=== PATIENT | female | born 1945 | race Caucasian/White ===

== ENCOUNTER → 2016-10-21 16:50 | Outpatient (CLI) | payer MEDICARE, MEDICAID | END | disposition home or self-care (01) | LOC: D.MAMMO 10-11 09:00 → D.US 10-11 10:00 → D.MAMMO 09:00 | DX: R92.8 Other abnormal and inconclusive findings on diagnostic imaging of breast (principal) ==

== ENCOUNTER 2017-11-14 17:49 | Inpatient (IN) | payer MEDICARE, MEDICAID ==
[~2017-11-14] VITALS: Ht 165.1 cm; Wt 72.3 kg
--- NOTE | ~2017-11-14 | EC ---
PATIENT:SNOW RAM DATE OF SERVICE: 11/14/17 SEX: F MEDICAL RECORD: [id number] DATE OF : [birth year] LOCATION:[id number] AGE OF PATIENT: 72 ADMISSION DATE: 11/15/17 REFERRING PHYSICIAN: INTERPRETING PHYSICIAN: CLAIRE DUMONT MD ECHOCARDIOGRAM REPORT ECHO CHARGES 4 ECHO COMPLETE CLINICAL DIAGNOSIS: CVA VS TIA ASSESS FOR CLOTS ECHOCARDIOGRAPHIC MEASUREMENTS (adult normal given) AC root (d.<3.7cm) 3.3 cm LV Septum d (<1.2 cm> 2.1 cm Valve Excursion 1.6 cm LV Septum (systole) 2.2 cm Left Atria (s.<4.0cm> 2.8 cm LVPW d(<1.2cm) 1.7 cm RV (d.<2.3cm) 3.3 cm LVPW (sytole) 2.0 cm LV diastole(<5.6CM) 3.1 cm MV E-F(>70mm/sec) cm LV systole 1.6 cm LVOT Diameter 1.7 cm MV exc.(>10mm) 1.5 cm Est.ejection fraction (50-75%) % Pericardial Effusion N DOPPLER: LVIT cm/sec A 135 cm/sec E 91.0 cm/sec LA cm/sec RVSP 33 mmHg LVOT 90 cm/sec AOP1/2T m/s Asc. Ao 133 cm/sec RVOT cm/sec RA cm/sec PA 145 cm/sec AV Gradient Peak 7.04 mmHg AV Mean 6.03 mmHg AV Area 1.4 cm MV Gradient Peak 7.93 mmHg MV Mean 4.15 mmHg MV Area cm COMMENTS: Rural Electrification Engineer: Randy MAHONEY Professional Architect: 1 Dr. Dumont TAPE# PACS DATE OF SERVICE: 11/15/2017 PROCEDURE: Echocardiogram. FINDINGS: 1. Left ventricular chamber size is within normal limits. Left ventricular systolic function is normal. Overall ejection fraction estimated at 55%. 2. Left atrium, right atrium, and right ventricular chamber sizes are within normal limits. 3. Valvular structures have normal structure and motion. ECHOCARDIOGRAM REPORT [id number] SNOW RAM 4. Doppler interrogation only reveals mild tricuspid regurgitation. No other valvular insufficiency or stenosis. 5. No evidence of pericardial effusion or left ventricular thrombus. 6. No cardiac source of neurologic emboli. TRANSINT:[id number] Voice Confirmation ID: [id number] DOCUMENT ID: [id number] CLAIRE DUMONT MD at 1202 CC: [id number] DICTATION DATE: 11/15/17 1220 BETTING AGENCY COUNTER CLERK: 11/15/17 1224 DIS IN 11/16/17 [place] [id number] [place] [id number]
[2017-11-14 18:47] LABS: BASOPHILS 0.5 % (0-2); EOSINOPHILS 2.1 % (0-7); HEMATOCRIT 37.7 % (36.0-48.0); HEMOGLOBIN 12.2 g/dL (12-16); IMMATURE GRANULOCYTES 0.2 % (0-5); LYMPHOCYTES 27.3 % (15-50); MCH 28.3 pg (26.0-34.0); MCHC 32.4 g/dL (31.0-37.0); MCV 87.5 fL (80.0-100.0); MEAN PLATELET VOLUME 9.4 fL (7.4-10.4); MONOCYTES 8.8 % (2-11); NEUTROPHILS 61.1 % (40-80); PLATELET COUNT 300 10x3/uL (130-400); RBC 4.31 10x6/uL (4.00-5.40); RDW 12.1 % (11.5-14.5); WBC 6.1 10x3/uL (4.8-10.8)
[2017-11-14 19:02] LABS: ALBUMIN 3.4 g/dL (3.4-5.0); ALKALINE PHOSPHATASE 90 U/L (46-116); ALT (SGPT) 23 U/L (10-68); BILIRUBIN - TOTAL 0.45 mg/dL (0.2-1.3); CALC OSMOLALITY 283 mosm/kg (275-300); CALCIUM 9.1 mg/dL (8.5-10.1); CARBON DIOXIDE 27.8 mmol/L (21.0-32.0); CHLORIDE - SERUM 101 mmol/L (98-107); CREATININE - SERUM 0.7 mg/dL (0.6-1.3); GLUCOSE 240 mg/dL (74-106); POTASSIUM - SERUM 3.9 mmol/L (3.5-5.1); PROTEIN - SERUM 7.9 g/dL (6.4-8.2); SODIUM 139 mmol/L (136-145); UREA NITROGEN 6 mg/dL (7-18); eGFR NON AFRICAN AMERICAN 88 mL/min (90-120)
[2017-11-14 19:03] LABS: CREATINE KINASE 51 UL (21-215)
[2017-11-14 19:05] LABS: TROPONIN-I < 0.017 ng/mL (0.000-0.060)
[2017-11-14 19:13] LABS: APTT 28.2 SECONDS (22.8-39.4); INR 1.02 (0.85-1.17)
[2017-11-14 20:37] LABS: APPEARANCE CLEAR (CLEAR); BACTERIA MODERATE /hpf (NONE SEEN); BILIRUBIN NEGATIVE (NEGATIVE); COLOR YELLOW (YELLOW); EPITHELIAL CELLS 0-5 /hpf (0-5); GLUCOSE NEGATIVE (NEGATIVE); KETONE NEGATIVE (NEGATIVE); NITRITE NEGATIVE (NEGATIVE); PROTEIN 1+ mg/dL (NEGATIVE); RED CELLS - URINE OCC /hpf (0-5); SPECIFIC GRAVITY 1.015 (1.005-1.020); UROBILINOGEN NORMAL (NORMAL)
[2017-11-14 20:56] LABS: CREATINE KINASE 46 UL (21-215); TROPONIN-I < 0.017 ng/mL (0.000-0.060)
[2017-11-14 23:58] LABS: CREATINE KINASE 44 UL (21-215); TROPONIN-I < 0.017 ng/mL (0.000-0.060)
[2017-11-15] MEDS ORDERED: LISINOPRIL2.5 MG PO (01:25)
[2017-11-15] MEDS ORDERED: GLUCOPHAGE1000 MG PO (01:25)
[2017-11-15] MEDS ORDERED: GLIPIZIDE10 MG PO (01:25)
[2017-11-15] MEDS ORDERED: NEURONTIN 300300 MG PO (01:26)
[2017-11-15] MEDS ORDERED: HYDROCODON-ACE1 EAC7 PO (01:27)
[2017-11-15 04:00] VITALS: BP 173/70
[2017-11-15 05:04] LABS: BASOPHILS 0.3 % (0-2); EOSINOPHILS 2.3 % (0-7); HEMATOCRIT 36.2 % (36.0-48.0); HEMOGLOBIN 11.3 g/dL (12-16); IMMATURE GRANULOCYTES 0.3 % (0-5); LYMPHOCYTES 34.3 % (15-50); MCH 27.3 pg (26.0-34.0); MCHC 31.2 g/dL (31.0-37.0); MCV 87.4 fL (80.0-100.0); MEAN PLATELET VOLUME 9.6 fL (7.4-10.4); MONOCYTES 9.3 % (2-11); NEUTROPHILS 53.5 % (40-80); PLATELET COUNT 301 10x3/uL (130-400); RBC 4.14 10x6/uL (4.00-5.40); RDW 12.2 % (11.5-14.5); WBC 5.7 10x3/uL (4.8-10.8)
[2017-11-15 05:50] LABS: ALKALINE PHOSPHATASE 78 U/L (46-116); ALT (SGPT) 21 U/L (10-68); BILIRUBIN - TOTAL 0.49 mg/dL (0.2-1.3); CALCIUM 8.7 mg/dL (8.5-10.1); CHLORIDE - SERUM 101 mmol/L (98-107); CKMB 0.9 U/L (0.0-3.6); CREATINE KINASE 37 UL (21-215); CREATININE - SERUM 0.8 mg/dL (0.6-1.3); GLUCOSE 261 mg/dL (74-106); POTASSIUM - SERUM 3.7 mmol/L (3.5-5.1); PROTEIN - SERUM 7.1 g/dL (6.4-8.2); SODIUM 138 mmol/L (136-145); eGFR NON AFRICAN AMERICAN 75 mL/min (90-120)
[2017-11-15 05:53] LABS: CALC OSMOLALITY 283 mosm/kg (275-300); TROPONIN-I < 0.017 ng/mL (0.000-0.060); UREA NITROGEN 9 mg/dL (7-18)
[2017-11-15 06:36] VITALS: BP 173/70; BMI 26.5
[2017-11-15 09:39] VITALS: BP 140/65
[2017-11-15 12:02] VITALS: BP 134/62
[2017-11-15 12:18] LABS: CKMB 0.7 U/L (0.0-3.6); CREATINE KINASE 38 UL (21-215)
[2017-11-15 12:19] LABS: TROPONIN-I < 0.017 ng/mL (0.000-0.060)
[2017-11-15 14:39] VITALS: Ht 165.1 cm; Wt 72.3 kg
[2017-11-15 15:10] LABS: CHOL - HDL RATIO 4.8 ratio (2.3-4.1); LDL-HDL RATIO 3.1 ratio (1.5-3.5)
[2017-11-15 16:17] VITALS: BP 138/84
[2017-11-15 20:00] VITALS: BP 162/70
[2017-11-16 04:00] VITALS: BP 172/76
[2017-11-16 08:08] VITALS: BP 147/73
[2017-11-16 12:53] VITALS: BP 160/73
[2017-11-16] MEDS ORDERED: BAYER CHEWABLE81 MG PO (13:29)
[2017-11-16] MEDS ORDERED: LIPITOR40 MG PO (13:30)
== END 2017-11-16 14:41 | disposition home or self-care (01) | DRG 69 ==
LOC: D.ER 17:49 → D.MS 23:01 → D.EDHOLD 23:01 → OBSVTIME 23:02 → D.MS 11-15 00:24
PROVIDERS: Emergency Medicine; Family Medicine; Internal Medicine Nephrology; Nurse Practitioner Family
DX: G45.9 Transient cerebral ischemic attack, unspecified (principal); N39.0 Urinary tract infection, site not specified; R29.810 Facial weakness; R47.81 Slurred speech; R53.1 Weakness; E11.9 Type 2 diabetes mellitus without complications; I44.7 Left bundle-branch block, unspecified; D64.9 Anemia, unspecified; Z87.891 Personal history of nicotine dependence

== ENCOUNTER 2019-04-16 08:00 | Outpatient (CLI) | payer MEDICARE, MEDICAID ==
[2017-11-15 14:39] VITALS: BMI 26.5
[~2019-04-16 08:00] MED LIST: BAYER CHEWABLE81 MG PO; GLIPIZIDE10 MG PO; GLUCOPHAGE1000 MG PO; HYDROCODON-ACE1 EAC7 PO; LIPITOR40 MG PO; LISINOPRIL2.5 MG PO; NEURONTIN 300300 MG PO
== END 2019-04-16 23:59 | disposition home or self-care (01) ==
LOC: D.MAMMO 08:00
PROVIDERS: ATTEND Family Medicine
DX: Z12.31 Encounter for screening mammogram for malignant neoplasm of breast (principal)

== ENCOUNTER → 2020-06-13 | Emergency (ER) | payer MEDICARE, MEDICAID ==
[2020-06-13 17:08] VITALS: Ht 165.1 cm
== END ==
LOC: D.ER 17:04
DX: I46.9 Cardiac arrest, cause unspecified (principal); E11.40 Type 2 diabetes mellitus with diabetic neuropathy, unspecified; Z79.84 Long term (current) use of oral hypoglycemic drugs